=== PATIENT | male | born 1965 | race Caucasian/White ===

== ENCOUNTER 2024-11-06 14:51 | Outpatient (AMB) | payer OTHER, SELFPAY ==
--- NOTE | 2024-11-06 14:54 | MHC.PC.OV ---
Intake Visit Reasons: Routine/ Dr Baker PT Coding
--- NOTE | 2024-11-06 14:54 | MHC.PC.OV ---
Vital Signs 11/06/24 15:02 Height 5 ft 10 in Weight 94.801 kg BMI 30.0 BP 124/84 Blood Pressure Location Lt brachial Position Sitting Pulse 103 H Temp 97.8 F Temp Source Temporal Artery Scan Pulse Oximetry (%) 98 Oxygen Delivery Method Room Air Intake Visit Reasons: Routine/ Dr Baker PT Identity Management Developer Required: No Accompanied by: Self / Same As Patient Allergies No Known Allergies Allergy (Verified 11/06/24 15:11) Medication List - Last Reconciled 11/06/24 by AARON Anthony hydrochlorothiazide 25 mg PO DAILY lisinopril 20 mg PO DAILY Tobacco use date assessed: 11/06/24 Dental Screening Dental Screen Date: 11/06/24 Did you have a dental visit in the last 12 months?: Yes Did you have a dental problem in the last 6 months where you did not have access to dental care?: No HPI HPI Comments History of Present Illness Details 59-year-old male with history of hypertension and hyperlipidemia presents to the office today for management of chronic conditions and to establish care. He has new patient to the office, previously following with Dr. Baker, last seen 07/2024 Hypertension-blood pressure 124/84. Compliant with hydrochlorothiazide and lisinopril Hyperlipidemia-labs requested. Not on statin Tachycardia-heart rate on arrival 111, improved to 103. Drank espresso prior to visit. Continue to trend down. No concerns and asymptomatic Concerns: None ROS: General: No fevers, malaise, unintentional weight loss HEENT: No blurred vision, diplopia. No sore throat, nasal congestion, rhinorrhea, sinus pain, ear pain Cardiovascular: No chest pain, palpitations, or leg edema Respiratory: No shortness of breath, wheezing, cough GI: No abdominal pain, nausea, vomiting, diarrhea, constipation, melena, hematochezia : No dysuria, hematuria, increased urinary frequency, decreased urinary output MSK: No myalgia, back pain Neuro: No headaches, weakness, paresthesias Skin: No rashes or lesions EXAM: Constitutional - Awake and Alert, No apparent distress Eyes - PERRL Cardiovascular - S1S2, RRR, No edema Respiratory - Normal lung expansion, Normal respiratory effort, No respiratory distress, CTA bilaterally Extremities - no calf tenderness bilaterally, no swelling Skin - Warm/Dry Neurological - Alert & oriented x3 Psychological - Appropriate affect PFSH Medical History (Updated 11/06/24 @ 15:36 by AARON Anthony) HTN (hypertension) HLD (hyperlipidemia) Family History (Updated 11/06/24 @ 15:15 by Jannet Brown MA) Mother No problems noted. Father No problems noted. Social History Housing: House Patient Tobacco Use Status: Never used Tobacco e-Cigarette/Vaping Use: Never Used Current occupational status: employed Cognitive needs: No Hearing needs: No Vision needs: Yes (Prescription glasses) Questionnaire PHQ-9 Over the last 2 weeks, how often have you been bothered by any of the following problems? 1. Little interest or pleasure in doing things: not at all 2. Feeling down, depressed, or hopeless: not at all 3. Trouble falling or staying asleep, or sleeping too much: not at all 4. Feeling tired or having little energy: not at all 5. Poor appetite or overeating: not at all 6. Feeling bad about yourself - or that you are a failure or have let yourself or your family down: not at all 7. Trouble concentrating on things, such as reading the newspaper or watching television: not at all 8. Moving or speaking so slowly that other people could have noticed. Or the opposite - being so fidgety or restless that you have been moving around a lot more than usual: not at all 9. Thoughts that you would be better off or of hurting yourself in some way: not at all Total score: 0 Source: Developed by Drs. Adan Chau, Yoana Thomas, Damon Tadeo and colleagues, with an educational martine from [email or web address]. Thrive Questionnaire Date Thrive assessed: 11/06/24 I am a: Patient Within the past 12 months, did the food you bought not last and you didn't have the money to get more?: Never true Within the past 12 months, did you worry whether your food would run out before you got money to buy more?: Never true Do you have trouble paying for medicines?: No Do you have trouble getting transportation to medical appointments?: No Do you have trouble paying your heating and electricity bill?: No Do you have trouble taking care of your child, family member or friend?: No Do you have trouble with day-to-day activities such as bathing, preparing meals, shopping, managing finances, etc.?: No Are you currently unemployed and looking for a job?: No Are you interested in more education?: No THRIVE Score: 0 AUDIT C Alcohol Use Questionnaire (AUDIT-C) 1. How often do you have a drink containing alcohol?: Never 3. How often do you have six or more drinks on one occasion?: Never Total Score: 0 MIKI-7 AMB Questionnaire MIKI-7 Date MIKI - 7 assessed: 11/06/24 Feeling nervous, anxious, or on edge: 0 = Not at all Not being able to stop or control worryin = Not at all Worrying too much about different things: 0 = Not at all Trouble relaxin = Not at all Being so restless that it is hard to sit still: 0 = Not at all Becoming easily annoyed or irritable: 0 = Not at all Feeling afraid as if something awful might happen: 0 = Not at all Total MIKI-7 score (0-4 normal; 5-9 mild; 10-14 moderate; 15-21 severe): 0 Source: Developed by Drs. Adan Chau, Yoana Thomas, Damon Tadeo and colleagues, with an educational martine from [email or web address]. Physical exam (Primary Care) Vital Signs: Last Vital Signs Temp 97.8 F 11/06/24 15:02 Pulse 103 H 11/06/24 15:02 BP 124/84 11/06/24 15:02 Pulse Ox 98 11/06/24 15:02 Oxygen Delivery Method Room Air 11/06/24 15:02 BMI result Body Mass Index 30.0 Tobacco/Smoking Status: Tobacco use Status Tobacco use date assessed 11/06/24 11/06/24 15:16 Patient Tobacco Use Status Never used Tobacco 11/06/24 15:16 e-Cigarette/Vaping Use Never Used 11/06/24 15:16 PHQ-9: PHQ-9 Score PHQ-9: Total score 0 11/06/24 15:21 Thrive Assessment: Date of Thrive Assessment Date Thrive assessed 11/06/24 11/06/24 15:16 Coding Level of Care Code New Pt Level 4 (14771) Complex EM visit Add On G2211 Diagnoses HTN (hypertension) I10 HLD (hyperlipidemia) E78.5 Assessment & Plan Assessment & Plan (1) HTN (hypertension): Code(s): I10 - Essential (primary) hypertension Category: Medical Plan: Controlled. Continue hydrochlorothiazide and lisinopril. Will obtain most recent labs to evaluate renal function electrolyte levels (2) HLD (hyperlipidemia): Code(s): E78.5 - Hyperlipidemia, unspecified Category: Medical Plan: Will obtain labs and calculate ASCVD risk score. Continue diet low in saturated fats and highly processed foods. Plan Follow-up 6 months with new PCP. Labs ordered to be completed externally Orders: Orders Lipid Panel 5 Months E78.5 - Hyperlipidemia, unspecified, I10 - Essential (primary) hypertension Liver Panel 5 Months E78.5 - Hyperlipidemia, unspecified, I10 - Essential (primary) hypertension Hemoglobin A1c 5 Months E78.5 - Hyperlipidemia, unspecified, I10 - Essential (primary) hypertension Prostate Specific Antigen 5 Months E78.5 - Hyperlipidemia, unspecified, I10 - Essential (primary) hypertension Basic Metabolic Panel 4 Months E78.5 - Hyperlipidemia, unspecified, I10 - Essential (primary) hypertension Complete Blood Count Auto Diff 5 Months E78.5 - Hyperlipidemia, unspecified, I10 - Essential (primary) hypertension
--- OUTSIDE RECORDS SUMMARY | 2024-11-06 14:54 | XMS_ITS | Patient Health Record ---
Author Organization [facility] Address [address] [place] [address] Care Team Providers Care Wire Loop Machine Operator Name Role Phone Armando Baker MD Primary Care Provider UnavailNils Landa Unavailable [phone] Reason For Referral No Information Medications Medication SIG (Take, Route, Fr equency, Duration) Notes Start Date End Date Status Lisinopril 20 MG 1 tablet Orally Once a day Active Hydralazine-HCTZ Act yasir Social History Tobacco Use: Social History Observation Description Date Details (start date - stop date) Former Smoker NA - NA Tobacco Use/Smoking Question Answer Notes Are you a: former smoker When did you stop smoking? 2002 Additional Findings: Tobacco Non-User Current no n-smoker Alcohol Screen Question Answer Notes Did you have a drink containing alcohol in the p ast year? No Points 0 Interpretation Negative Plan Of Treatment Pending Test Test Name Order Date I&D ABSCESS- SIMPLE,SINGLE 018 Insurance Providers Payer Name Payer Address Payer Phone Subscriber Number Group Number Insured Name Patient Relationship to Insured Coverage Start Date Coverage End Date Cigna [address] [facility] [place] [id number] Héctor Molina Self - patient is the insured Medical (General) History Medical History History ICD Code High blood pressure
--- OUTSIDE RECORDS SUMMARY | 2024-11-06 14:54 | XMS_ITS | Patient Health Record ---
Author Organization [facility] Address [address] [place] [address] Care Team Providers Care Dry Wall Applicator Name Role Phone Samuel (RETIRED) Armando LEWIS Primary Care Provider Unavailable Carlyle Plascencia Jr Unavailable [phone] Reason For Referral No Information Medications Medication SIG (Take, Route, Frequency, Duration) Notes Start Date End Date Status Lisinopril Active Colyte with Flavor Packs 240 GM As direc linnette Orally Over the specified time. for 1 day(s) 05/26/2015 Active hydroCHLOROthiazide Active Problems Problem Type SNOMED Code ICD Code Onset Dates Problem Status W/U Status Risk Notes Problem [id number] Colon cancer screening (Z12.11) Active confirmed Plan Of Treatment Future Test Test Name Order Date COLONOSCOPY 05/26/2015 Insurance Providers Payer Name Payer Address Payer Phone Subscriber Number Group Number Insured Name Patient Relationship to Insured Coverage Start Date Coverage End Date [employer] [address] [place] [address] [id number] TONO TOBIN Self - patient is the insured Medical (General) History Medical History History ICD Code hypertension Denies AR,DM,CVA,Lung disease,renal dise ase
[2024-11-06 15:02] VITALS: BP 124/84; PULSE 103; TEMP 36.6; O2SAT 98
== END 2024-11-06 15:46 | disposition home or self-care (01) ==
PROVIDERS: PCP Family Medicine; Visit Provider Physician Assistant
DX: I10 Essential (primary) hypertension (principal); E78.5 Hyperlipidemia, unspecified